=== PATIENT | male | born 1970 | race Caucasian/White ===

== ENCOUNTER 2018-03-30 14:42 | Emergency (ER) | payer OTHER ==
[~2018-03-30] VITALS: Ht 172.7 cm; Wt 81.6 kg
[2018-03-30 14:42] VITALS: BP 131/79
== END 2018-03-30 16:51 | disposition home or self-care (01) ==
LOC: ER 14:48
DX: S62.626A Displaced fracture of middle phalanx of right little finger, initial encounter for closed fracture (principal); E78.00 Pure hypercholesterolemia, unspecified; W23.0XXA Caught, crushed, jammed, or pinched between moving objects, initial encounter; Y93.89 Activity, other specified; Y92.89 Other specified places as the place of occurrence of the external cause; Y99.8 Other external cause status
CPT/HCPCS: 29130; 73140; 99284; A4606; Z7610

== ENCOUNTER 2021-01-15 06:27 | Emergency (ER) | payer MEDICAID, OTHER ==
[~2021-01-15] VITALS: Ht 172.7 cm; Wt 81.6 kg
[2021-01-15 06:30] VITALS: BP 140/90
--- NOTE | 2021-01-15 06:40 | NUR ---
BIBSELF C/O MOUTH PAIN AND SWELLING S/P ROOT CANAL X4 DAYS. 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 PT ON AMOXICILIN AND FLAGYL X1 DAY. AMBULATORY TO BED 9 W/ STEADY GAITS. WAS PLACED ON A MONITOR.
[2021-01-15] MEDS ORDERED: CLINDAMYCIN 600 MG in IV D5W 100 ML IV ONE (07:00)
--- NOTE | 2021-01-15 07:04 | NUR ---
PER ER MD, WILL ADMINISTER IM ANTIBIOTICS. AWAITING ORDERS.
[2021-01-15 07:12] LABS: BASOPHILS % (AUTO) 0.4 % (0.0-2.0); EOSINOPHILS % (AUTO) 2.9 % (0.0-6.0); HEMATOCRIT 46 % (39-51); HEMOGLOBIN 15.6 g/dL (13.5-17.5); LYMPHOCYTES # (AUTO) 3.6 /CMM (0.8-4.8); LYMPHOCYTES % (AUTO) 36.6 % (20.0-44.0); MEAN CORPUSCULAR HGB CONC 34 g/dl (31.0-36.0); MEAN CORPUSCULAR VOLUME 99 fL (80-96); MONOCYTES # (AUTO) 1.1 /CMM (0.1-1.30); MONOCYTES % (AUTO) 10.9 % (2.0-12.0); NEUTROPHILS # (AUTO) 4.8 /CMM (1.8-8.9); NEUTROPHILS % (AUTO) 49.2 % (43.0-81.0); PLATELET COUNT (AUTO) 215 /CMM (150-450); RED BLOOD CELL COUNT(AUTO) 4.64 MIL/uL (4.5-6.0); WHITE BLOOD COUNT (AUTO) 9.7 K/uL (4.3-11.0)
--- NOTE | 2021-01-15 07:12 | NUR ---
Pt is medically stable for D/C per MD. Patient discharged to home in stable condition. Written and verbal after care instructions given. Patient verbalizes understanding of instruction.
[2021-01-15 07:16] LABS: CALCIUM, SERUM 9.1 mg/dL (8.5-10.1); POTASSIUM 4.9 mmol/L (3.5-5.1)
[2021-01-16] MEDS ORDERED: ACETAMINOPHEN 325 MG TABLET ONE (21:28)
== END 2021-01-15 07:13 | disposition home or self-care (01) ==
LOC: ER 06:30
DX: K08.89 Other specified disorders of teeth and supporting structures (principal); R22.0 Localized swelling, mass and lump, head; E78.00 Pure hypercholesterolemia, unspecified
CPT/HCPCS: 36415; 80048-TC; 85025-TC; J3490; J7060

== ENCOUNTER 2023-01-22 21:05 | Emergency (ER) | payer OTHER ==
[~2023-01-22] VITALS: Ht 172.7 cm; Wt 86.2 kg
[2023-01-22 21:25] VITALS: BP 128/74
[2023-01-22] MEDS ORDERED: AMOX/CLAVULANATE 875 MG TABLET PO ONE (21:30)
[2023-01-22] MEDS ORDERED: AMOX-430 PO (21:30)
[2023-01-22] MEDS ORDERED: AMOX/CLAVULANATE 875 MG TABLET ONE (21:35)
--- NOTE | 2023-01-22 21:49 | NUR ---
Patient discharged to home in stable condition. Written and verbal after care instructions given. Patient verbalizes understanding of instruction.
== END 2023-01-22 21:49 | disposition home or self-care (01) ==
LOC: ER 21:08
DX: S61.432A Puncture wound without foreign body of left hand, initial encounter (principal); E78.00 Pure hypercholesterolemia, unspecified; W22.8XXA Striking against or struck by other objects, initial encounter; Y93.89 Activity, other specified; Y92.89 Other specified places as the place of occurrence of the external cause; Y99.8 Other external cause status